=== PATIENT | female | born 1990 | race Caucasian/White ===

== ENCOUNTER 2019-05-28 11:48 | Inpatient (IN) | payer OTHER ==
[~2019-05-28] VITALS: Ht 167.6 cm; Wt 57.8 kg
[~2019-05-28 11:48] MED LIST: ACET325T33 PO; CIPR500T4 PO; IBUP800T48 PO; PNV11TAB PO
[2019-05-28 13:11] VITALS: BP 107/60; PULSE 60; RESP 18; Ht 167.6 cm; Wt 57.8 kg
[2019-05-28] MEDS ORDERED: TERBUTALINE 1 MG/ML INJ SC ONE (15:30)
[2019-05-28] MEDS ORDERED: TERBUTALINE 1 ML ONE (15:49)
[2019-05-28] MEDS: LACTATED RINGER'S 1,000 ML IV SCH ×2 (16:12→19:55)
[2019-05-28] MEDS ORDERED: BETAMET NA PHOS/AC (6 MG/ML) 2 ML INJ SYG IM SCH (16:30)
[2019-05-28] MEDS ORDERED: LACTATED RINGER'S 1,000 ML IV SCH (18:18)
[2019-05-29] MEDS: LACTATED RINGER'S 1,000 ML IV SCH ×3 (08:09→21:23)
[2019-05-29] MEDS: FERROUS SULFATE (EC) 325 MG TAB PO SCH (09:18)
[2019-05-29] MEDS: PRENATAL VITAMIN PO SCH (09:19)
[2019-05-29] MEDS ORDERED: OXYTOCIN 30 UNITS/LR 500 ML IV SCH (15:30)
[2019-05-29] MEDS ORDERED: TERBUTALINE 1 ML ONE (17:15)
[2019-05-29] MEDS ORDERED: TERBUTALINE 1 MG/ML INJ SC ONE (17:30)
[2019-05-29] MEDS: BETAMET NA PHOS/AC (6 MG/ML) 2 ML INJ SYG IM SCH (17:41)
[2019-05-30] MEDS: LACTATED RINGER'S 1,000 ML IV SCH ×2 (06:09→16:42)
[2019-05-30] MEDS: PRENATAL VITAMIN PO SCH (08:41)
[2019-05-30] MEDS: FERROUS SULFATE (EC) 325 MG TAB PO SCH (08:41)
[2019-05-30] MEDS: BETAMET NA PHOS/AC (6 MG/ML) 2 ML INJ SYG IM SCH (16:41)
[2019-05-30] MEDS: CALCIUM/VITAMIN D (500/200) TAB PO SCH (21:35)
[2019-05-31] MEDS: LACTATED RINGER'S 1,000 ML IV SCH ×2 (01:20→23:30)
[2019-05-31] MEDS: PRENATAL VITAMIN PO SCH (09:05)
[2019-05-31] MEDS: FERROUS SULFATE (EC) 325 MG TAB PO SCH (09:05)
[2019-05-31] MEDS: CALCIUM/VITAMIN D (500/200) TAB PO SCH (09:05)
[2019-06-01] MEDS: LACTATED RINGER'S 1,000 ML IV SCH ×2 (07:30→15:30)
[2019-06-01] MEDS: CALCIUM/VITAMIN D (500/200) TAB PO SCH (08:50)
[2019-06-01] MEDS: PRENATAL VITAMIN PO SCH (08:50)
[2019-06-01] MEDS: FERROUS SULFATE (EC) 325 MG TAB PO SCH (08:50)
[2019-06-02] MEDS: FERROUS SULFATE (EC) 325 MG TAB PO SCH (11:12)
[2019-06-02] MEDS: CALCIUM/VITAMIN D (500/200) TAB PO SCH (11:12)
[2019-06-02] MEDS: PRENATAL VITAMIN PO SCH (11:12)
[2019-06-03] MEDS: PRENATAL VITAMIN PO SCH (08:51)
[2019-06-03] MEDS: CALCIUM/VITAMIN D (500/200) TAB PO SCH (08:51)
[2019-06-03] MEDS: FERROUS SULFATE (EC) 325 MG TAB PO SCH (08:51)
[2019-06-04] MEDS: FERROUS SULFATE (EC) 325 MG TAB PO SCH (09:50)
[2019-06-04] MEDS: PRENATAL VITAMIN PO SCH (09:50)
[2019-06-04] MEDS: CALCIUM/VITAMIN D (500/200) TAB PO SCH (09:50)
[2019-06-05] MEDS: FERROUS SULFATE (EC) 325 MG TAB PO SCH (11:41)
[2019-06-05] MEDS: PRENATAL VITAMIN PO SCH (11:41)
[2019-06-05] MEDS: CALCIUM/VITAMIN D (500/200) TAB PO SCH (11:41)
[2019-06-06] MEDS: LACTATED RINGER'S 1,000 ML IV SCH ×2 (03:32→10:54)
[2019-06-06] MEDS: PRENATAL VITAMIN PO SCH (09:40)
[2019-06-06] MEDS: CALCIUM/VITAMIN D (500/200) TAB PO SCH (09:40)
[2019-06-06] MEDS: FERROUS SULFATE (EC) 325 MG TAB PO SCH (09:40)
[2019-06-06] MEDS ORDERED: TERBUTALINE 1 ML ONE (11:57)
[2019-06-06] MEDS ORDERED: TERBUTALINE 1 MG/ML INJ SC ONE (12:00)
[2019-06-06] MEDS ORDERED: LACTATED RINGER'S 1,000 ML IV SCH ×2 (14:40→20:44)
[2019-06-06] MEDS ORDERED: LACTATED RINGER'S 1,000 ML IV ONE (14:52)
[2019-06-06] MEDS ORDERED: CITRIC ACID/NA CITRATE 30 ML CUP PO ONE (15:00)
[2019-06-06] MEDS ORDERED: OXYTOCIN 30 UNITS/LR 500 ML IV SCH (15:00)
[2019-06-06] MEDS ORDERED: OXYTOCIN 30 UNITS/LR 500 ML IV PRN ×2 (15:00→21:00)
[2019-06-06] MEDS ORDERED: MISOPROSTOL 200 MCG TAB PR PRN ×2 (15:00→21:00)
[2019-06-06] MEDS ORDERED: CARBOPROST 250 MCG INJ IM PRN ×2 (15:00→21:00)
[2019-06-06] MEDS ORDERED: CEFAZOLIN 2 GM/50 ML (PMX) 50 ML IVPB SCH (15:00)
[2019-06-06] MEDS ORDERED: FAMOTIDINE 20 MG INJ IV ONE (15:00)
[2019-06-06] MEDS ORDERED: METOCLOPRAMIDE 10 MG INJ IV ONE (15:00)
[2019-06-06] MEDS ORDERED: METHYLERGONOVINE 0.2 MG INJ IM PRN ×2 (15:00→21:00)
[2019-06-06] MEDS ORDERED: AZITHROMYCIN 500MG/NS (PMX) 250 ML IV SCH (15:00)
[2019-06-06] MEDS ORDERED: morphine SULFATE/PF (10 MG/10 ML) INJ ONE (15:42)
[2019-06-06] MEDS ORDERED: PHENYLephrine (100 MCG/ML) 10ML SYG ONE (15:56)
[2019-06-06] MEDS ORDERED: ONDANSETRON 4 MG INJ ONE ×2 (16:08→17:10)
[2019-06-06] MEDS ORDERED: KETOROLAC 30 MG INJ IV STA (16:51)
[2019-06-06] MEDS ORDERED: ACETAMINOPHEN 500 MG TAB PO STA (16:51)
[2019-06-06] MEDS ORDERED: HYDROmorphONE 0.5 MG/0.5 ML SYG IV PRN ×2 (17:00)
[2019-06-06] MEDS ORDERED: ZOLPIDEM 5 MG TAB PO PRN (17:00)
[2019-06-06] MEDS ORDERED: NALOXONE (0.4 MG/ML) INJ IV PRN (17:00)
[2019-06-06] MEDS ORDERED: DIPHENHYDRAMINE 50 MG INJ IV PRN ×2 (17:00→19:00)
[2019-06-06] MEDS: ONDANSETRON 4 MG INJ IV PRN (17:13)
[2019-06-06] MEDS ORDERED: OXYTOCIN 30 UNITS/LR 500 ML IV ONE (18:51)
[2019-06-06] MEDS ORDERED: HYDROmorphONE 1 MG/5 ML IV SYRINGE IV PRN ×3 (19:00)
[2019-06-06] MEDS ORDERED: PROCHLORPERAZINE 10 MG INJ IV PRN (19:00)
[2019-06-06] MEDS ORDERED: FENTAnyl 50 MCG/ML VIAL IV PRN (19:00)
[2019-06-06] MEDS ORDERED: ONDANSETRON 4 MG INJ IV PRN (19:00)
[2019-06-06] MEDS ORDERED: MAGNESIUM SULFATE 20 GM/500 ML 500 ML IV SCH (19:26)
[2019-06-06] MEDS ORDERED: CA GLUCONATE (GM) 10% 10ML INJ IV PRN (19:30)
[2019-06-06] MEDS ORDERED: MAGNESIUM SULFATE 4 GM/100 ML 100 ML IV SCH (19:30)
[2019-06-06] MEDS ORDERED: MAGNESIUM SULFATE 4 GM/100 ML 100 ML ONE (19:33)
[2019-06-06] MEDS: MAGNESIUM SULFATE 40GM/1000ML 1,000 ML IV SCH (20:23)
[2019-06-06 20:28] VITALS: BP 127/62; PULSE 91; RESP 19
[2019-06-06] MEDS: CLINDAMYCIN 300 MG CAP PO SCH (20:53)
[2019-06-06] MEDS: SENNA/DOCUSATE NA (8.6MG/50MG) TAB PO SCH (21:00)
[2019-06-06] MEDS ORDERED: NA PHOSPHATE/BIPHOS 133 ML ENEMA PR PRN (21:00)
[2019-06-06] MEDS ORDERED: LANOLIN HPA 1 PKT TOP PRN (21:00)
[2019-06-06 21:30] VITALS: BP 136/74; PULSE 92; RESP 19
[2019-06-06 22:30] VITALS: BP 134/72; PULSE 97; RESP 18
[2019-06-06] MEDS ORDERED: KETOROLAC 30 MG INJ IV PRN (23:00)
[2019-06-06 23:30] VITALS: BP 134/72; PULSE 97; RESP 18
[2019-06-06] MEDS: CEFAZOLIN 2 GM/50 ML (PMX) 50 ML IVPB SCH (23:59)
[2019-06-07] VITALS (20 sets, daily range): BP systolic 99–148; BP diastolic 55–77; PULSE 87–111; RESP 17–20
[2019-06-07] MEDS: CLINDAMYCIN 300 MG CAP PO SCH ×3 (01:00→12:00)
[2019-06-07] MEDS: ONDANSETRON 4 MG INJ IV PRN ×2 (02:05→07:51)
[2019-06-07] MEDS: SENNA/DOCUSATE NA (8.6MG/50MG) TAB PO SCH ×2 (09:00→22:16)
[2019-06-07] MEDS: CEFAZOLIN 2 GM/50 ML (PMX) 50 ML IVPB SCH ×2 (09:34→17:03)
[2019-06-07] MEDS ORDERED: BISACODYL 10 MG SUPP PR ONE ×2 (10:00→20:00)
[2019-06-07] MEDS: IBUPROFEN 800 MG TAB PO SCH ×2 (15:48→22:17)
[2019-06-07] MEDS ORDERED: HYDROCODONE/APAP (5/325) TAB PO PRN (15:48)
[2019-06-07] MEDS: GENTAMICIN 80 MG/NS (PMX) 50 ML IVPB SCH ×2 (17:02→23:54)
[2019-06-07] MEDS: CLINDAMYCIN 900 MG (PMX) 50 ML IVPB SCH ×2 (18:03→23:54)
[2019-06-07] MEDS: AMPICILLIN 2 GM/NS (PMX) 100 ML IVPB SCH ×2 (18:04→23:55)
[2019-06-08] VITALS: BP 128/78; PULSE 84; RESP 18
[2019-06-08] MEDS: GENTAMICIN 80 MG/NS (PMX) 50 ML IVPB SCH ×3 (02:05→16:06)
[2019-06-08 03:25] VITALS: BP 130/80; PULSE 76; RESP 19
[2019-06-08] MEDS: AMPICILLIN 2 GM/NS (PMX) 100 ML IVPB SCH ×2 (05:17→11:12)
[2019-06-08] MEDS: CLINDAMYCIN 900 MG (PMX) 50 ML IVPB SCH ×3 (05:17→16:56)
[2019-06-08] MEDS: IBUPROFEN 800 MG TAB PO SCH ×3 (05:18→22:27)
[2019-06-08] MEDS: MAGNESIUM SULFATE 40GM/1000ML 1,000 ML IV SCH (09:58)
[2019-06-08 10:17] VITALS: BP 102/57; PULSE 85; RESP 16
[2019-06-08] MEDS: SENNA/DOCUSATE NA (8.6MG/50MG) TAB PO SCH ×2 (10:32→21:00)
[2019-06-08 12:15] VITALS: BP 105/62; PULSE 85; RESP 16
[2019-06-08] MEDS: OXYCODONE/ACETAMINOPHEN (5/325) TAB PO PRN (15:35)
[2019-06-08 16:49] VITALS: BP 108/52; PULSE 83; RESP 20
[2019-06-08] MEDS: CLINDAMYCIN 300 MG CAP PO SCH (18:30)
[2019-06-08 19:40] VITALS: BP 119/59; PULSE 76; RESP 18
[2019-06-08] MEDS: CIPROFLOXACIN 500 MG TAB PO SCH (19:41)
[2019-06-09] MEDS: CLINDAMYCIN 300 MG CAP PO SCH ×4 (00:43→18:29)
[2019-06-09 04:00] VITALS: BP 121/80; PULSE 87; RESP 19
[2019-06-09] MEDS: CIPROFLOXACIN 500 MG TAB PO SCH ×2 (05:17→18:29)
[2019-06-09] MEDS: IBUPROFEN 800 MG TAB PO SCH ×2 (05:18→14:39)
[2019-06-09] MEDS: SENNA/DOCUSATE NA (8.6MG/50MG) TAB PO SCH (09:00)
[2019-06-09] MEDS ORDERED: DIPHTH/TET/ACEL PERTUSS (ADULT) 0.5 ML VIAL IM* ONE (09:00)
[2019-06-09] MEDS ORDERED: MEASLES,MUMPS,RUBELLA VACCINE INJ SC* ONE (09:00)
[2019-06-09] MEDS: OXYCODONE/ACETAMINOPHEN (5/325) TAB PO PRN ×2 (10:23→18:29)
[2019-06-09] MEDS ORDERED: ACETAMINOPHEN 325 MG TAB PO PRN (13:30)
[2019-06-09 16:00] VITALS: BP 137/74; PULSE 77
== END 2019-06-09 18:55 | disposition home or self-care (01) | DRG 788 ==
LOC: OBT 11:48 → L-D 11:48 → OBT 17:45 → L-D 17:45 → PP1 05-31 23:45 → L-D 06-06 04:01 → PP1 06-06 20:28
PROVIDERS: ADMIT Obstetrics & Gynecology; ATTEND Obstetrics & Gynecology
PROC: 3E033VJ Introduction of Other Hormone into Peripheral Vein, Percutaneous Approach (ICD-10-PCS; 2019-06-06)
PROC: 10D00Z1 Extraction of Products of Conception, Low, Open Approach (ICD-10-PCS; principal; 2019-06-06 15:30)
DX: O60.13X0 Preterm labor second trimester with preterm delivery third trimester, not applicable or unspecified (principal); O36.5930 Maternal care for other known or suspected poor fetal growth, third trimester, not applicable or unspecified; O76 Abnormality in fetal heart rate and rhythm complicating labor and delivery; O13.4 Gestational [pregnancy-induced] hypertension without significant proteinuria, complicating childbirth; Z3A.36 36 weeks gestation of pregnancy; Z37.0 Single live birth
CPT/HCPCS: 76815; 76818; 76820; 80053; 81003; 83735; 84560; 85025; 85610; 85730; 86592; 86850; 86900; 86901; 87081; 87340; 99464; G0463; J0290; J0456; J0690; J0702; J0780; J1580; J1885; J2274; J2370; J2405; J2590; J2765; J3010; J3105; J7120